=== PATIENT | female | born 1990 | race Caucasian/White ===

== ENCOUNTER 2022-11-03 10:14 | Outpatient (CLI) | payer OTHER | END 2022-11-03 11:16 | disposition home or self-care (01) | LOC: NST 10:14 | PROVIDERS: ATTEND Obstetrics & Gynecology | DX: Z34.83 Encounter for supervision of other normal pregnancy, third trimester (principal) ==

== ENCOUNTER 2022-12-22 16:47 | Inpatient (IN) | payer OTHER ==
[~2022-12-22] VITALS: Ht 154.9 cm; Wt 63.5 kg
[2023-01-07] MEDS ORDERED: PRENATAL TABLE1 EAC1 PO (17:50)
== END 2023-01-09 12:53 | disposition home or self-care (01) | DRG 807 ==
LOC: LDR 01-07 17:38 → OB/GYN 01-07 17:38
PROVIDERS: ADMIT Obstetrics & Gynecology; ATTEND Obstetrics & Gynecology
PROC: 4A1HXCZ Monitoring of Products of Conception, Cardiac Rate, External Approach (ICD-10-PCS; 2023-01-07)
PROC: 10E0XZZ Delivery of Products of Conception, External Approach (ICD-10-PCS; principal; 2023-01-08)
PROC: 0UQG7ZZ Repair Vagina, Via Natural or Artificial Opening (ICD-10-PCS; 2023-01-08)
DX: O71.4 Obstetric high vaginal laceration alone (principal); Z37.0 Single live birth; Z3A.39 39 weeks gestation of pregnancy; Z20.822 Contact with and (suspected) exposure to COVID-19

== ENCOUNTER 2023-01-05 07:50 | Outpatient (CLI) | payer OTHER | END 2023-01-05 08:58 | disposition home or self-care (01) | LOC: NST 07:50 | PROVIDERS: ATTEND Obstetrics & Gynecology | DX: Z34.83 Encounter for supervision of other normal pregnancy, third trimester (principal) ==